=== PATIENT | female | born 1955 | race Caucasian/White ===

== ENCOUNTER → 2016-12-01 | Outpatient (CLI) | payer BC ==
[~2016-12-01] MED LIST: ASCO10003 PO; CALC-393 PO
== END | disposition home or self-care (01) ==
LOC: C.PAPS 12:47
PROVIDERS: ATTEND Obstetrics & Gynecology
DX: Z01.419 Encounter for gynecological examination (general) (routine) without abnormal findings (principal)

== ENCOUNTER → 2017-01-02 | Outpatient (CLI) | payer BC ==
--- NOTE | 2017-01-03 13:16 | DIAGNOSTIC IMAGING REPORT ---
LEFT ANKLE MIN 3 VIEWS CLINICAL HISTORY: Left ankle fracture COMPARISON: None. DISCUSSION: No acute fractures are visualized on conventional radiographic imaging. There is a small plantar calcaneal spur. There is a corticated ossicle adjacent to the lateral malleolus. This is felt to be old. There is mild soft tissue swelling. IMPRESSION: Soft tissue swelling. No acute fractures or subluxations are visualized. Electronically signed by: Shakir Clark M.D. 01/03/2017 1:14 PM Dictated Date/Time: 01/03/2017 1:13 PM
== END | disposition home or self-care (01) ==
LOC: C.RDSM 11:37
PROVIDERS: ATTEND Physical Medicine & Rehabilitation Sports Medicine
DX: S82.892A Other fracture of left lower leg, initial encounter for closed fracture (principal); X58.XXXA Exposure to other specified factors, initial encounter; M79.89 Other specified soft tissue disorders

== ENCOUNTER → 2017-01-04 | Outpatient (CLI) | payer BC ==
--- NOTE | 2017-01-04 13:55 | DIAGNOSTIC IMAGING REPORT ---
CT LOWER EXTREMITY WITHOUT CT DOSE: 278.12 mGy.cm CLINICAL HISTORY: Left ankle pain. Talus fracture. TECHNIQUE: Helical images were acquired in the transverse plane. Sagittal and coronal reformatted images were acquired. COMPARISON STUDY: Conventional radiographic study dated 01/02/2017 FINDINGS: There is mild subcutaneous edema present. No acute fractures of the distal tibia or fibula are visualized. There is a well-corticated ossicle adjacent the fibular tip. This is felt to be old. There are tiny bony densities adjacent to the anterior aspect of the calcaneus. These are likely old. There is minimal irregularity of the lateral aspect patellar dome. Again this is felt to be chronic. There are mild degenerative changes present within the tibiotalar joint. A tiny bony density visualized at the level the dorsolateral the talus is felt to be old. There is a small calcaneal spur. IMPRESSION: No acute fractures or dislocations are visualized. Electronically signed by: Shakir Clark M.D. 01/04/2017 1:53 PM Dictated Date/Time: 01/04/2017 1:48 PM
== END | disposition home or self-care (01) ==
LOC: C.CTS 13:23
PROVIDERS: ATTEND Physical Medicine & Rehabilitation Sports Medicine
DX: S92.102A Unspecified fracture of left talus, initial encounter for closed fracture (principal); X58.XXXA Exposure to other specified factors, initial encounter

== ENCOUNTER → 2017-08-09 | Outpatient (CLI) | payer BC ==
--- NOTE | 2017-08-10 12:28 | MAMMOGRAPHY REPORT ---
BILATERAL DIGITAL SCREENING MAMMOGRAM TOMOSYNTHESIS WITH CAD: 08/09/2017 CLINICAL HISTORY: Routine screening. Patient has no complaints. TECHNIQUE: Breast tomosynthesis in addition to standard 2D mammography was performed. Current study was also evaluated with a Computer Aided Detection (CAD) system. COMPARISON: Comparison is made to exams dated: 08/08/2016 mammogram, 12/21/2015 mammogram, 08/05/2015 ma mmogram, 05/28/2014 mammogram, 05/27/2013 mammogram, and 05/24/2012 mammogram - [facility]. BREAST COMPOSITION: There are scattered areas of fibroglandular density in both breasts. FINDINGS: There is stable ribbon-shaped biopsy marker clip in the lower inner anterior left breast. A few benign round calcifications bilaterally. Stable intramammary lymph node in the left upper out er quadrant. No new suspicious mass, architectural distortion or cluster of microcalcifications is se en. IMPRESSION: ACR BI-RADS CATEGORY 1: NEGATIVE There is no mammographic evidence of malignancy. A 1 year screening mammogram is recommended. The pa tient will receive written notification of the results. Approximately 10% of breast cancers are not detected with mammography. A negative mammographic report should not delay biopsy if a clinically suggestive mass is present. Nadine Nicholas M.D. ay/:08/09/2017 15:52:27 Purler: Mi RESTREPO(Chauncey)(M), [facility] letter sent: Normal 1/2 BI-RADS Code: ACR BI-RADS Category 1: Negative
== END | disposition home or self-care (01) ==
LOC: C.MAMM 15:11
PROVIDERS: ATTEND Obstetrics & Gynecology
DX: Z12.31 Encounter for screening mammogram for malignant neoplasm of breast (principal)

== ENCOUNTER → 2017-11-03 | Outpatient (CLI) | payer BC ==
--- NOTE | 2017-11-09 09:30 | CODING QUERY NO DIAGNOSIS ---
TREATMENT RENDERED WITHOUT A DIAGNOSIS Dr. Heredia, To promote full compliance with coding requirements relating to patient care, physician participation is requested in all cases of electrical appliance preparer uncertainty. Please assist us with providing a diagnosis/symptom for the test(s) below: A diagnosis/symptom was not documented on your Order. A valid diagnosis/symptom is required to bill all insurances. Please remember that we are unable to code a diagnosis of rule out, probable, possible, questionable, or suspected. Tests that require a diagnosis: * LEG LENGTH STUDY (WHOLE LEG) DIAGNOSIS: DATE OF SERVICE: 11/03/17 Provider Signature: Date: Thank you Russ Moy [facility] Information Management Once completed, please kindly fax back to [phone] For questions please call [phone]
== END | disposition home or self-care (01) ==
LOC: C.RDSM 10:21
PROVIDERS: ATTEND Orthopaedic Surgery
DX: M25.562 Pain in left knee (principal)

== ENCOUNTER → 2017-12-12 | Outpatient (CLI) | payer OTHER | END | disposition home or self-care (01) | LOC: C.PAPS 07:56 | PROVIDERS: ATTEND Obstetrics & Gynecology | DX: Z01.419 Encounter for gynecological examination (general) (routine) without abnormal findings (principal); Z78.0 Asymptomatic menopausal state ==

== ENCOUNTER 2025-06-10 07:56 | Observation (INO) ==
--- NOTE | 2025-05-15 10:21 | PAT Medication Instructions ---
Medication Instructions Date of Service May 15, 2025 Home Medications acetaminophen 500 mg tablet (Acetaminophen Extra Strength) 500 - 1,000 mg PO TID PRN Pain multivitamin 1 tab PO QAM DO NOT take the morning of surgery multivitamin 1 tab PO QAM Take morning of surgery With a small sip of water, OTHERWISE NOTHING TO EAT OR DRINK AFTER MIDNIGHT: acetaminophen 500 mg tablet (Acetaminophen Extra Strength) 500 - 1,000 mg PO TID PRN Pain (if needed) Other Notes If you have any questions please call us at [phone] or [phone] or [phone] or [phone]
--- NOTE | 2025-05-22 08:13 | Anesthesiology Consultation ---
Date of Service May 22, 2025 Assessment & Plan (1) Encounter for pre-operative examination: - Case discussed in detail with Dr. Chicas who advised patient can proceed as outpatient joint if requested by patient and surgeon. Patient had reported plan to remain overnight at [facility], but is booked as OPJ. [place] with surgeon's office advised is to be overnight, OR corrected booking. Chart Review Chart Review: Acceptable Risk for Surgery and Patient seen in Pre Admission Testing Teaching & Discussion Pre-Anesthesia Teaching/Discussion Notes: Instructed NPO after midnight before surgery, except medications with 15 cc of water. Medication instructions provided according to the [facility] guidelines. History Surgery Operation Date: 06/10/25 09:50 Proposed Procedures p Left Total Knee Arthroplasty - Cyrus Saxena MD Height/Weight Height: 5 ft 5 in Weight: 86.2 kg Allergies Allergy/AdvReac Type Severity Reaction Status Date / Time Penicillins Allergy Unknown unknown, Verified 05/14/25 12:19 as a child Medications Home Medications Medication Instructions Recorded Confirmed Last Taken acetaminophen 500 mg tablet 500 - 1,000 mg PO TID PRN Pain 05/14/25 05/14/25 Unknown (Acetaminophen Extra Strength) multivitamin 1 tab PO QAM 05/14/25 05/14/25 Unknown Past Medical History Medical History History of COVID-19 (10/2022) 11/07/22- nausea, muscle aches, fatigue-symptoms resolved Hx of colonic polyps Osteoarthritis SNHL (sensorineural hearing loss) bilateral hearing aides Patient denies h/o stroke, seizures, heart attack, heart failure, DM, HTN, blood clots/DVTs or blood transfusions. Exercise / Class Metabolic Activity III < 4 Walking/Shop/Light housework (denies chest discomfort or shortness of breath with usual activities) Past Family History Family History Sister Leukemia Breast cancer Father Lung cancer smoker Mother Lymphoma Hypertension Daughter Breast cancer precancerous Other No family history of adverse response to anesthesia No family history of bleeding disorder Denies family history of Ovarian cancer Colorectal cancer Past Surgical History Surgical History H/O cataract extraction bilateral History of breast biopsy left-percutaneous needle core-benign History of colonoscopy Hx laparoscopic cholecystectomy Past Anesthesia History No Hx of Anesthesia Complications and No Family Hx of Anesthesia Complications History of PONV No Hx of PONV and No Hx of Motion Sickness Social History Smoking Status: Never smoker Do You Dip or Chew Tobacco: No Hx Alcohol Use: No Hx Substance Use: No substance use type: does not use Review of Systems Snoring, denies witnessed apneas. Patient denies chest pain, shortness of breath, dyspnea on exertion, reflux, fever, chills, cough, wheezing, or palpitations. Physical Exam Vital Signs Vitals BP 122/81 P 68 TEMP 97.9 SP02 96% on RA RESP 18 Physical Patient resting comfortably in chair in no acute distress, alert and oriented, responding appropriately throughout visit Full cervical extension range of motion without pain TMD 3.5 finger breadths Mallampati Score 2 Dentition: removable tooth right upper side and cap; denies chipped or loose teeth, implants or bridges Lungs: normal respiratory effort. Good air movement, clear throughout to auscultation, no adventitious breath sounds Cardiac: regular rate and rhythm, no murmurs noted Carotid arteries: negative bruit bilat Lab Results Anesthesia Preop Results Results Anesthesia Widget: WBC 5.93 K/ul (4.8-10.8) 05/22/25 Hgb 14.2 g/dl (12.0-16.0) 05/22/25 Hct 42.0 % (37.0-47.0) 05/22/25 Plt 237 K/uL (130-400) 05/22/25 Na 139 mmol/L (136-145) 05/22/25 K 4.5 mmol/L (3.5-5.1) 05/22/25 Cl 105 mmol/L (98-107) 05/22/25 CO2 29 mmol/L (21-32) 05/22/25 BUN 23 mg/dl (6-23) 05/22/25 Creat 0.85 mg/dl (0.6-1.2) 05/22/25 Glucose Level 92 mg/dl (70-99(Fasting)) 05/22/25 PT 10.2 Seconds (9.0-12.0) 05/22/25 PTT 27 Seconds (21-31) 05/22/25 INR 0.9 (0.9-1.1) 05/22/25 Urine Color Yellow 05/22/25 Urine Appearance Clear (Clear) 05/22/25 Urine pH 5.5 (4.5-7.5) 05/22/25 Urine Specific [place] 1.018 (1.000-1.030) 05/22/25 Urine Protein Negative (Negative) 05/22/25 Urine Glucose (UA) Negative (Negative) 05/22/25 Urine Ketones Negative (Negative) 05/22/25 Urine Blood Trace (Negative) H 05/22/25 Urine Nitrite Negative (Negative) 05/22/25 Urine Bilirubin Negative (Negative) 05/22/25 Urine Urobilinogen Negative (Negative) 05/22/25 Urine Leukocyte Esterase Negative (Negative) 05/22/25 Urine WBC (Auto) 0-5 /hpf (0-5) 05/22/25 Urine RBC (Auto) 0-2 /hpf (0-2) 05/22/25 Urine Hyaline Casts (Auto) 0-2 /lpf (0-2) 05/22/25 Urine Epithelial Cells (Auto) 0-2 /hpf (0-2) 05/22/25 Urine Bacteria (Auto) None Seen (None Seen) 05/22/25 Blood Type AB Positive 05/22/25 Antibody Screen NEGATIVE 05/22/25 Testing Electrocardiogram Date: 05/22/25 NSR, rate 62 bpm Left axis deviation Nonspecific T wave abnormality Chest X-Ray Date: 05/22/25 The cardiomediastinal silhouette is unremarkable noting atherosclerotic calcification of the thoracic aorta. There is minimal dependent atelectasis. The lungs and pleural spaces are otherwise clear. There is no pneumothorax. The skeletal structures are osteopenic. The bony thorax appears intact. Degenerative change and mild stenosis is seen in the thoracic spine. Cholecystectomy clips are noted in the right upper quadrant. IMPRESSION: No active disease in the chest.
[~2025-06-10 07:56] MED LIST changes: -ASCO10003 PO; +BUPIVACAINE 0.5 % 5 MG/1 ML PF 10ML VIAL ONE; -CALC-393 PO; +LIDOCAINE 2% 2 ML VIAL/AMP(20MG/ML) INFIL ONE; +MIDAZOLAM HCL 1 MG/ML 2ML VIAL ONE; +PROPOFOL IV EMULSION 10 MG/ML 100 ML VIAL IV ONE; +ROPIVACAINE 0.5% 5 MG/ML 30 ML VIAL ONE
[2025-06-10] MEDS: ACETAMINOPHEN 500 MG TAB PO SCH ×2 (08:17→14:24)
[2025-06-10] MEDS: CeleBREX 200 MG CAP PO SCH ×2 (08:18→19:57)
[2025-06-10] MEDS: LR 60ML/HR IV SCH (08:31)
[2025-06-10] MEDS: LR 500ML BOLUS, THEN 15ML/HR IV SCH (08:31)
--- NOTE | 2025-06-10 09:38 | History & Physical Bridge Note ---
Date of Service June 10, 2025 History & Physical Bridge Note I have examined the patient, reviewed the History & Physical and in the interval since the performance of the History & Physical I have noted the following changes of clinical significance: no changes noted
[2025-06-10] MEDS: TRANEXAMIC ACID 1,000 MG **IV Pre-op IV SCH (09:48)
[2025-06-10] MEDS ORDERED: MIDAZOLAM HCL 1 MG/ML 2ML VIAL ONE (09:50)
[2025-06-10] MEDS ORDERED: DEXAMETHASONE SOD INJ 4 MG/ML VIAL ONE (11:01)
[2025-06-10] MEDS: ORTHO JOINT ANESTHETIC ONE (11:11)
[2025-06-10] MEDS: ROPIV 0.5% 246mg, Ketorolac 30mg, EPINEPHrine 0.5mg in NSS INFIL SCH (11:19)
--- NOTE | 2025-06-10 12:21 | Operative Report ---
Post Operative Report Pre & Post Diagnosis Operation Date: 06/10/25 09:50 Pre-Op Diagnosis: Osteoarthritis Knee Left Post-Op Diagnosis: Osteoarthritis Knee Left I identified the patient and participated in the time-out.: Yes Procedure Operation Date: 06/10/25 09:50 Actual Procedures p Left Total knee replacement, imageless computer assisted navigation (Left) - Cyrus Saxena MD Surgeon Cyrus Saxena MD Fur Trapper Ezequiel Lauren PA-C (No fellow avail) Estimated Blood Loss 50 Findings See Below Examined Under Anesthesia: ROM -- There was 5 degrees to 120 degrees of flexion Ligamentous examination -- revealed stable Dashawn, posterior drawer, varus and valgus stress at 0 and 30 degrees. [place] Grade IV changes of Patellofemoral & medial compartments, grade II- III changes Lateral compartment. Fluids 1400 cc Specimens Left knee contents Anesthesia Type MAC Spinal Regional Complications none Indications This is a 70-year-old female who has clinical and radiographic findings consistent with osteoarthritis of the a left knee. I recommended that a left total knee replacement be performed. The patient understands the risks of surgery, which include but not limited to: bleeding, infection, re-operation, damage to nerves and arteries, continued knee pain, knee stiffness, DVT, and . The patient understands all these instructions and explanations, all his questions have been satisfactorily addressed, and the patient has elected to proceed. Informed consent was signed. Description of Procedure IMPLANTS: 1. Femur: Triathlon #4 Left PS. 2. Tibia: Triathlon #4 [place]. 3. Insert: Triathlon #4 x 9 mm PS X3 poly. 4. Patella: Triathlon A29 x 9 mm X3 poly. 5.[place]os cement. Ezequiel Lauren PA-C is assisting with positioning, retracting, and closure due to fellow not available. Procedure: The patient was taken to the Operating Room and placed in the supine position after spinal and adductor canal nerve block was administered. My initials and a multidisciplinary time-out were used to identify the left leg as the correct operative limb. A tourniquet was placed high on the thigh. Prior to the incision, 2 grams of intravenous Ancef were given. One g of TXA was given pre- operatively and another after the tourniquet was released. The left leg was then prepped and draped in a standard sterile fashion. An Esmarch was used to exsanguinate the leg, and the tourniquet was inflated to 250 mmHg. The planned mid-line 20 cm incision was created exposing the extensor mechanism. The medial parapatellar arthrotomy was made and the patella was everted. The patella was addressed first. It was severely sclerotic with deep groove laterally that was 12 mm thick. It was prepared by reaming from 18 mm down to 13 mm. An A29 button was found to fit best. The peg holes were made in the standard fashion. The femur was addressed next and using computer assisted OrthoAlign with 3 degrees of flexion and 0 degrees of valgus, removing 10 mm in the standard fashion for the distal cut. The cut was made and after making the Tibial cut and checking the balancing using OrthoAlign Lantern, Flexion/Extension gap 8 mm laterally & 8 mm medially. The Lantern was set to 8 which matched exactly the posterior referencing guide. The 4-in-1 cutting block for a size 4 femur was placed. These cuts and the cuts to place the box were made in the standard fashion. The tibia cut with using imageless computer assisted OrthoAlign, taking 2 mm from the medial low side.A #4 Tibial baseplate fit well. A trial with a 9 mm spacer showed excellent stability in both flexion and extension, with good ligament balance, and thumbs free patellar tracking. Range of motion of 0-125 degrees. The tibial baseplate was prepped for the keel and stem. All components were removed. 90 ml of total knee cocktail were injected into the soft tissues and periosteum. All surfaces were copiously irrigated prior to placement of the components. The Tibial baseplate followed by femoral component were cemented in place and the 9 mm X3 poly was placed. Next, the patellar button was placed using the same cement. Once the cement had cured, the range of motion and stability were unchanged. The tourniquet was deflated. Hemostasis was obtained. Another 1g TXA was given. The extensor mechanism was closed with 1-0 Vicryl and 0 Stratafix with the knee bent approximately 60 degrees in a standard fashion. The peritenon and deep fascia was closed with 2-0 Vicryl. The subcutaneous layer was closed with 3-0 Vicryl. The skin was closed with Zipline and shield. The limb was cleaned and dried. 4x4 dressing was placed over top followed by ABDs, sterile Webril, and a foot to thigh Silvestre bandage. The patient was then transferred to the Recovery Room in stable condition. The sponge and needle counts were correct. POST-OP INSTRUCTIONS: The patient will be WBAT. The patient will be admitted to the hospital. Complete 24-hour course antibiotics. Labs will be obtained during the stay. DVT prophylaxis will include aspirin for 6 weeks, TEDs, and mechanical foot pumps. The dressing will be changed, postop day #2-3, and covered with a Silverlon dressing. I attest to the content of the Intraoperative Record and any orders documented therein. Any exceptions are noted below.
--- NOTE | 2025-06-10 12:21 | Post Operative Brief Note ---
Immediate Post Op Note Date of Surgery June 10, 2025 Pre & Post Diagnosis Operation Date: 06/10/25 09:50 Pre-Op Diagnosis: Osteoarthritis Knee Left Post-Op Diagnosis: Osteoarthritis Knee Left I identified the patient and participated in the time-out.: Yes Procedure Operation Date: 06/10/25 09:50 Actual Procedures p Left Total Knee Arthroplasty(Left) - Cyrus Saxena MD Surgeon Cyrus Saxena MD [place] Mold Maker Ezequiel Lauren PA-C (No fellow avail) Estimated Blood Loss 50 Findings Consistent with Post-Op Diagnosis Fluids 1400 cc Specimens Left knee contents Anesthesia Type MAC Spinal Regional Complications none
--- NOTE | 2025-06-10 12:47 | Operative Report ---
Post Operative Report Pre & Post Diagnosis Operation Date: 06/10/25 09:50 Pre-Op Diagnosis: Osteoarthritis Knee Left Post-Op Diagnosis: Osteoarthritis Knee Left I identified the patient and participated in the time-out.: Yes Procedure Operation Date: 06/10/25 09:50 Actual Procedures p Left Total Knee Arthroplasty(Left) - Cyrus Javier Saxena MD Surgeon Dr Saxena Gr[employer] Ezequiel Lauren PA-C (No fellow avail) Estimated Blood Loss 50 Findings Consistent with Post-Op Diagnosis Specimens left knee joint Description of Procedure Pt was taken to operating room and properly positioned for procedure. Refer to anesthesia's note for anesthesia used. Pt was given pre-op antibiotics. Prepped and draped in sterile fashion. I was present during the entire case and assisted with positioning, instrumentation, closure and dressings. Please see surgeon's op report for further detail. Pt was awake and transferred to PACU in stable condition I attest to the content of the Intraoperative Record and any orders documented therein. Any exceptions are noted below.
[2025-06-10] MEDS ORDERED: DROPERIDOL 5 MG/2 ML VIAL IV PRN (13:03)
[2025-06-10] MEDS ORDERED: ATROPINE SULFATE 0.1 MG/ML 10ML SYR IV PRN (13:03)
[2025-06-10] MEDS ORDERED: DEXAMETHASONE SOD INJ 4 MG/ML VIAL IV PRN (13:03)
[2025-06-10] MEDS ORDERED: PROMETHAZINE HCL 6.25 MG in SODIUM CHLORIDE 0.9% 50 ML IV PRN (13:03)
[2025-06-10] MEDS: ONDANSETRON INJ 2 MG/ML 2 ML VIAL IV PRN (13:07)
[2025-06-10] MEDS: ONDANSETRON INJ 2 MG/ML 2 ML VIAL ONE (13:07)
--- NOTE | 2025-06-10 13:18 | XRay Report ---
XR knee LT 1 or 2V routine CLINICAL HISTORY: Surgical Post Op COMPARISON: None FINDINGS: Left knee prosthesis shows no hardware complication. There is expected soft tissue gas. IMPRESSION: Unremarkable postoperative exam. ACT 112: Negative or not required by law. Electronically signed by: Julian Davis M.D. 06/10/2025 1:16 PM
--- NOTE | 2025-06-10 13:39 | Anesthesiology Progress Note ---
Date of Service June 10, 2025 Anesthesia Post Procedure Vital Signs Vital Signs: Temp Pulse Pulse Resp BP BP Pulse Ox 06/10/25 13:30 36.4 C L 60 22 137/89 97 06/10/25 13:20 68 20 151/95 H 97 06/10/25 13:10 64 20 147/89 H 98 06/10/25 13:00 66 20 137/87 98 06/10/25 12:50 69 13 150/92 H 97 06/10/25 12:40 36.1 C L 74 16 148/93 H 100 06/10/25 08:08 37 C 74 16 140/91 97 O2 Del Method 06/10/25 13:30 Room Air 06/10/25 13:20 Room Air 06/10/25 13:10 Room Air 06/10/25 13:00 Room Air 06/10/25 12:50 Room Air 06/10/25 12:40 Room Air 06/10/25 08:08 Room Air Transfer of Care Handoff Completed per policy Notes Mental Status: alert / awake / arousable and participated in evaluation Patient Amnestic to Procedure: Yes Nausea / Vomiting: adequately controlled Pain: adequately controlled Airway Patency, RR, SpO2: stable & adequate BP & HR: stable & adequate Hydration State: stable & adequate Anesthetic Complications: no major complications apparent
[2025-06-10] MEDS ORDERED: ONDANSETRON INJ 2 MG/ML 2 ML VIAL IV PRN (13:41)
[2025-06-10] MEDS ORDERED: MAGNESIUM HYDROXIDE SUSP 30 ML UDC PO PRN (13:41)
[2025-06-10] MEDS ORDERED: METOCLOPRAMIDE HCL INJ 5 MG/ML 2 ML VIAL IV PRN (13:41)
[2025-06-10] MEDS ORDERED: NALOXONE HCL 0.4 MG/1 ML VIAL/CARP IV PRN (13:41)
[2025-06-10] MEDS ORDERED: diphenhydrAMINE Capsule 25 MG CAP PO PRN (13:41)
[2025-06-10] MEDS: ONDANSETRON INJ 2 MG/ML 2 ML VIAL IV STA (14:10)
[2025-06-10] MEDS: SODIUM CHLORIDE 0.9% 1,000 ML IV SCH (14:27)
[2025-06-10] MEDS: Scopolamine CHECK PATCH PLACEMENT SCH (17:41)
[2025-06-10] MEDS: FERROUS GLUCONATE 324 MG TAB PO SCH (17:41)
[2025-06-10] MEDS: ASCORBIC ACID 500 MG TAB PO SCH (17:41)
[2025-06-10] MEDS: DOCUSATE SODIUM 100 MG CAP PO SCH (21:05)
[2025-06-10] MEDS: SENNA 8.6 MG TAB PO SCH (21:06)
[2025-06-11 07:08] LABS: Hematocrit (blood only) 36.6 % (37.0-47.0); Hemoglobin 12.1 g/dl (12.0-16.0); Mean Corpuscular Hemoglobin 31.8 pg (25.0-34.0); Mean Corpuscular Volume 96.1 fL (80.0-100.0); Platelet Count 188 K/uL (130-400); RDW Standard Deviation 44.4 fL (36.4-46.3); Red Blood Count 3.81 M/uL (4.20-5.40); White Blood Count 8.03 K/ul (4.8-10.8)
[2025-06-11 07:34] LABS: Anion Gap 3.0 (3-11); Blood Urea Nitrogen 14.0 mg/dl (6-23); Calcium 8.7 mg/dl (8.6-10.3); Carbon Dioxide 28.0 mmol/L (21-32); Chloride 108.0 mmol/L (98-107); Creatinine Clr Calc Pharmacy 68.3 ml/min; Glucose 103.0 mg/dl (70-99(Fasting)); Potassium 4.2 mmol/L (3.5-5.1); Sodium 139.0 mmol/L (136-145)
[2025-06-11] MEDS: ASPIRIN 81 MG ECTAB PO SCH (08:21)
[2025-06-11] MEDS: MULTIVITAMIN TAB PO SCH (08:22)
[2025-06-11] MEDS: dexAMETHasone 10 MG in SYRINGE 0 ML IV SCH (08:23)
--- NOTE | 2025-06-11 09:24 | Orthopedic Progress Note ---
Date of Service June 11, 2025 Assessment & Plan (1) Status post left knee replacement: Plan: POD1 s/p total knee arthroplasty Patient pain not well controlled this morning, we discussed possibly staying another night for pain control and Zaynab would like to do this as she did not feel comfortable going home today and I think this is reasonable given her pain level and inability to work well with PT or ambulate on her own well enough yet. We will see if we can get her pain better controlled today and likely d/c home tomorrow WBAT with walker PT/OT Diet - regular Frequently ice and elevate with blankets stacked under ankle DVT prophylaxis: ASA 81mg BID x 6 weeks, TEDS x 3 weeks, foot pumps while in hospital Pain control: Tylenol 1000mg q 8hrs, Celebrex 200mg BID, oxycodone 5-10mg q4 hrs for moderate pain, Dilaudid 0.5mg IV for severe/breakthrough pain Vitamin C and Iron supplementation BID x 2 weeks Dressing: Left in place today, prior to d/c, will change dressing to Mepilex dressing that patient can leave in-tact until f/u Discharge home with home health x 2 weeks, CM consulted Follow up as scheduled with [facility] in 2 weeks Admission and Anticipated Discharge Date Admission Date: June 10, 2025 Subjective Pt was seen and examined bedside. POD #1 s/p KATHERINE w DR Saxena. Pt was admitted last night for observation. No major events over night, however patient is experiencing 9/10 pain this morning. Vitals are stable. Labs unremarkable. X- rays show normal post operative changed. They are tolerating PO intake and voiding adequate amounts. Pt denies F/C, N/V/D, SOB, CP. Pt has not yet worked with PT. We discussed probably staying another night for pain control. Physical Exam Physical Exam: General: Pt laying in hospital bed AA&O, in NAD, calm and cooperative during exam although appears to be in pain Lower Extremity: Dressing in tact and not saturated. Left in place today. Pt has full ROM of ankle and all 5 digits. Exam limited this morning d/t pts pain level. Calf soft. NVI with sensation to light touch distally and good distal pulses present. Results & Data Vital Signs (Past 12 Hours) Vital Signs Temp Pulse Resp BP Pulse Ox O2 Del Method 07/30/25 08:28 36.6 C 62 18 114/74 96 Room Air 06/11/25 04:10 36.9 C 55 L 16 104/67 97 Room Air 06/10/25 23:32 36.5 C 62 15 112/70 97 Room Air Laboratory Results 06/11/25 Range/Units 06:11 WBC 8.03 (4.8-10.8) K/ul RBC 3.81 L (4.20-5.40) M/uL Hgb 12.1 (12.0-16.0) g/dl Hct 36.6 L (37.0-47.0) % MCV 96.1 (80.0-100.0) fL MCH 31.8 (25.0-34.0) pg MCHC 33.1 (32.0-36.0) g/dL RDW Std Deviation 44.4 (36.4-46.3) fL RDW Coeff of Valeria 12.6 (11.5-14.5) % Plt Count 188 (130-400) K/uL MPV 10.6 (9.4-12.4) fL Sodium 139 (136-145) mmol/L Potassium 4.2 (3.5-5.1) mmol/L Chloride 108 H (98-107) mmol/L Carbon Dioxide 28 (21-32) mmol/L Anion Gap 3 (3-11) BUN 14 (6-23) mg/dl Creatinine 0.82 (0.6-1.2) mg/dl Est Cr Clr Drug Dosing 68.3 ml/min eGFR 76.43 BUN/Creatinine Ratio 17.1 (10-20) Glucose 103 H (70-99(Fasting)) mg/dl Calcium 8.7 (8.6-10.3) mg/dl
[2025-06-12 07:35] VITALS: BP 122/78; PULSE 65; RESP 16; TEMP 98.2; O2SAT 98
--- NOTE | 2025-06-12 09:57 | Orthopedic Progress Note ---
Date of Service June 12, 2025 Assessment & Plan (1) Status post left knee replacement: Plan: POD2 s/p total knee arthroplasty The patient still has pain in her knee this morning. She was informed that this is normal and expected. WBAT with walker PT/OT today and then discharge to home with home health Continue her regular diet Frequently ice and elevate with blankets stacked under ankle to obtain better extension DVT prophylaxis: ASA 81mg BID x 6 weeks, TEDS x 3 weeks, foot pumps while in hospital Pain control: Tylenol 1000mg q 8hrs, Celebrex 200mg BID, oxycodone 5-10mg q4 hrs for moderate pain, Dilaudid 0.5mg IV for severe/breakthrough pain Vitamin C and Iron supplementation BID x 2 weeks Dressing: Changed to Mepilex this morning by me. She can leave this in place until evaluated in the office. Discharge home with home health x 2 weeks, CM confirmed that [facility] is aware. Follow up as scheduled with [facility] in 2 weeks for Zipline removal Admission and Anticipated Discharge Date Admission Date: June 11, 2025 Subjective This 70-year-old female is seen today in her room. She is 2 days status post left total knee arthroplasty. She states she is still having pain this morning. She has been able to get out of bed. No chest pain, nausea, vomiting, or abdominal pain. No shortness of breath. No other complaints. Physical Exam Physical Exam: General: Well-developed, well-nourished, elderly female, in no acute distress. Laying in bed. Alert and oriented. Skin: Warm and dry with good turgor. No rashes. Postsurgical dressings are in place on the left leg. Upon removal, there is scant dried blood on the most inner dressings. Zipline is in place. Wound edges are well-approximated. No erythema or warmth. No drainage. Musculoskeletal: The patient has intact motor function of her left ankle and toes. She has some difficulty with a straight leg raise. There is full terminal extension with encouragement. Flexion is to around 40 degrees with assistance. Neurologic: Gross sensation is intact across the left leg by soft touch. Peripheral pulses are 2+. Results & Data Vital Signs (Past 12 Hours) Vital Signs Temp Pulse Resp BP Pulse Ox O2 Del Method 06/12/25 07:34 36.8 C 65 16 122/78 98 Room Air
--- NOTE | 2025-06-13 07:54 | Discharge Summary ---
Date of Service June 13, 2025 Admission HPI Per Admitting Provider This 70-year-old female presented to the office with complaints of persisting left knee pain. She had tried conservative care measures without improvement. She elected to proceed with surgical intervention after being educated about potential risks and outcomes. Admission Exam (Per Admitting) Constitutional See preoperative history and physical. Discharge Data Consultations None Procedures Performed Operation Date: 06/10/25 09:50 Actual Procedures p Left Total Knee Arthroplasty(Left) - Cyrus Saxena MD Hospital Course (1) Status post left knee replacement: The patient was admitted through same-day surgery on 06/10/2025 and underwent successful left total knee arthroplasty by Dr. Saxena. Surgery was uneventful. She was transferred to the recovery room without issue. The rest of her evening was uneventful. Vital signs remained stable. She experienced postoperative pain overnight. On the morning of 06/11 the patient participated with PT and OT. She remained painful. Due to her persisting pain, she was kept for an additional night. She remained without chest pain, shortness of breath, nausea, vomiting, or abdominal pain. She remained stable overnight. She was reevaluated on the morning of 06/12. Vitals remained stable. Patient continued to complain of pain, though it was manageable with oral medication. She was able to participate with PT and OT again, and was discharged to home with home health services. Discharge Instructions WBAT with walker discharge to home with home health Continue her regular diet Frequently ice and elevate with blankets stacked under ankle to obtain better extension DVT prophylaxis: ASA 81mg BID x 6 weeks, TEDS x 3 weeks, foot pumps while in hospital Pain control: Tylenol 1000mg q 8hrs, Celebrex 200mg BID, oxycodone 5-10mg q4 hrs for moderate pain Vitamin C and Iron supplementation BID x 2 weeks Dressing: Changed to Mepilex this morning by me. She can leave this in place until evaluated in the office. Discharge home with home health x 2 weeks, CM confirmed that [facility] is aware. Follow up as scheduled with [facility] in 2 weeks for Zipline removal
[2025-06-13] MEDS ORDERED: Scopolamine REMOVE TRANSDERM PATCH ONE (08:00)
== END 2025-06-12 12:42 | disposition home health service (06) ==
LOC: ASU 07:56 → 3E 07:56